=== PATIENT | female | born 1990 | race Two or more races ===

== ENCOUNTER 2022-12-16 08:15 | Emergency (ER) | payer OTHER ==
[2022-12-16 08:28] VITALS: BP 137/95
[2022-12-16] MEDS ORDERED: BACITRACIN ZINC OINT 1 PACKET TOP STA (09:34)
--- NOTE | 2022-12-16 09:36 | ED Physician Documentation ---
PD HPI LOWER EXT INJURY - Stated complaint Stated Complaint: LT FOOT LAC - Chief complaint Chief Complaint: Laceration - History obtained from History obtained from: Patient - Additional information Additional information: The patient comes to the emergency department chief complaint of left foot laceration. The patient states a picture fell off the wall and the glass cut the top of her foot this morning. She states that she has had a tetanus shot within the last 10 years, she is in the . She denies any other injuries or complaints at this time. Review of Systems Constitutional: reports: Reviewed and negative Eyes: reports: Reviewed and negative Ears: reports: Reviewed and negative Nose: reports: Reviewed and negative Throat: reports: Reviewed and negative Cardiac: reports: Reviewed and negative Respiratory: reports: Reviewed and negative GI: reports: Reviewed and negative : reports: Reviewed and negative Skin: reports: Laceration (s) Musculoskeletal: reports: Reviewed and negative Neurologic: reports: Reviewed and negative Psychiatric: reports: Reviewed and negative Endocrine: reports: Reviewed and negative Immunocompromised: reports: Reviewed and negative PD PAST MEDICAL HISTORY - Present Medications Home Medications: Ambulatory Orders Medication Instructions Recorded Confirmed No Known Home Medications 12/16/22 12/16/22 - Allergies Allergies/Adverse Reactions: Allergies Allergy/AdvReac Type Severity Reaction Status Date / Time No Known Drug Allergies Allergy Verified 12/16/22 08:28 PD ED PE NORMAL - Vitals Vital signs reviewed: Yes - General General: Alert and oriented X 3, No acute distress, Well developed/nourished - HEENT HEENT: Atraumatic, PERRL, EOMI, Moist mucous membranes - Neck Neck: Supple, no meningeal sign - Cardiac Cardiac: Strong equal pulses - Respiratory Respiratory: No respiratory distress - Derm Derm: Normal color, Warm and dry, No rash, Other (1 cm superficial laceration over lateral dorsum of left foot. Depth is approximately 2 mm. No tendon visualized in floor of wound. No foreign body.) - Extremities Extremities: No deformity, Other (Full range of motion of L toes.) - Neuro Neuro: Alert and oriented X 3 - Psych Psych: Normal mood, Normal affect Results - Vitals Vitals: Vital Signs - 24 hr 12/16/22 08:25 Temperature 36.8 C Heart Rate 89 Respiratory 18 Rate Blood Pressure 137/95 H O2 Saturation 99 Oxygen O2 Source Room air Procedures - Laceration (location) Left foot Length in cm: 1 Wound type: Linear, Into subcut fat, Clean Neurovascular status: Sensory intact, Motor intact, Vascular intact Tendon involvement: Tendon intact Anesthesia: Lidocaine 1% Wound preparation: Hibiclens, Irrigated copiously NS, To the base Skin layer closure: Nylon, Interrupted, Size #-0 - enter number (4.0), Sutures - enter # (2) Other: Patient tolerated well, No complications, Neurovascular intact, Dressing applied, Tetanus UTD PD Medical Decision Making - ED course Complexity details: considered differential, d/w patient ED course: Wound was repaired as above. We have discussed principles of wound management at home, timeline for suture removal, and the usual indications for return. Departure - Departure Disposition: Home, Self Care Clinical Impression: Laceration Condition: Stable Instructions: ED Laceration Foot Comments: Please keep the wound clean and dry in general. You may let water and soap run over the wound, but please do not rub, scrub, or immerse the wound until the sutures are removed. This is to prevent infection. The sutures should be kept in place for 7 days, after which you may follow-up at [facility] to have them removed. You may apply an antibiotic Ointment to the wound until forms a dry scab. You may cover it with a Band-Aid until the wound scabs over, after which you may leave it open to air. If it is catching on your socks, Or your boots are causing excessive friction, then you may continue to place a Band-Aid over it when you are wearing the socks and boots. In general, the rate of infection of the surgical wounds is very low; however, if you begin to notice redness or swelling spreading progressively away from the wound, or if your wound had been dry, but splits open and appears "mushy", please have it rechecked, as it may be infected.
== END 2022-12-16 09:50 | disposition home or self-care (01) ==
LOC: ED 08:15
DX: S91.312A Laceration without foreign body, left foot, initial encounter (principal); W25.XXXA Contact with sharp glass, initial encounter
CPT/HCPCS: 12001; 99281; A9270